=== PATIENT | female | born 1950 | race Caucasian/White ===

== ENCOUNTER → 2016-11-24 | Day surgery (SDC) | payer BC ==
[~2016-11-24] MED LIST: ALDACTONE25 MG PO; ALIGN4 MG PO; BRISDELLE7.5 MG PO; CARAFATE1 GM; CELEXA; CRESTOR PO; CRESTOR10 MG PO; ESTRADIOL PATCH TOP; ESTROGEL93 GM VG; GLUCOTROL XL PO; HUMALOG MI100 UNIT/5; LEXAPRO20 MG PO; LOSARTAN POTASS50 MG PO; METFORMIN PO; MULTI-VITAMIN1 TAB; NEXIUM 24HR20 MG PO; NEXIUM PO; NOVOLIN 70100 UNITS/; PAROXETINE HCL20 M1 PO; PHENERGAN PO; PRENATAL1 TA1; PROZAC PO; TROKENDI XR100 MG PO; TROKENDI XR50 MG PO; TYLOX 5/500 CAP1 CAP; VITAMIN; VITAMIN D PO; VITAMIN D2400 UNIT PO; VIVELLE.0375 MG/2 TOP; WAL-ZYR10 M1 PO; ZYRTEC PO; ZYRTEC10 M2 PO; [UNRECOGNIZED DRUG - OTHER]; [UNRECOGNIZED DRUG - OTHER] PO
--- NOTE | ~2016-11-24 | OR ---
Unit #: [id number] #: [id number] Patient: RAVINDER ROMAN [id number] [address] [place], [place] [address] [id number] MR#: [id number] NAME: RAVINDER ROMAN ROOM: Date of Procedure: 11/24/2016 Admission Date: 11/24/2016 Surgeon: Ovi Frias Jr., M.D. : 1950 Attending Physician: Ovi Frias Jr., M.D. Primary Care Physician: Felipa Benson M.D. OPERATIVE REPORT INDICATIONS FOR PROCEDURE The patient is a 66-year-old white female, recently presented to the office complaining of significant intermittent abdominal pain. Abdominal pain has been in left upper quadrant and left lower quadrant. Workup so far revealed no evidence of any abnormality. She has had a past history of having a lap band, which was helpful and losing weight, but was removed several years ago. She has also had a history of colon polyps. It was felt she could recurred with a polyps or possibly other pathology. She is brought to the endoscopy suite at this time for upper and lower endoscopy. She has had no recent scopes. She has had her prep at home. PREOPERATIVE DIAGNOSES Possible occult ulcer disease, possible colitis, possible diverticulitis. POSTOPERATIVE DIAGNOSES On upper endoscopy, the patient was noted to have 1 to 2+ ulcerative distal esophagitis and no other specific abnormalities except for a small hiatal hernia. 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 The largest was approximately 3 mm in diameter and in the sigmoid at 20 cm. ANESTHESIA MAC anesthesia. PROCEDURE PERFORMED Flexible fiberoptic esophagogastroduodenoscopy with flexible colonoscopy to the cecum and biopsies of several polyps with cold biopsy forceps and snare polypectomy of a polyp at 20 cm. DESCRIPTION OF PROCEDURE The patient was positioned in Silva position with left side down. After being given MAC anesthesia, the Olympus XQ scope was passed through the proximal esophagus. Entire esophagus was examined. Proximal two-thirds appeared normal in the area of the distal esophagus. There were some small ulcerations compatible with 1 to 2+ ulcerative distal esophagitis without evidence of any stenosis. The scope was advanced through the GE junction, there was a small hiatal hernia and down to the fundic and antral region of the stomach and retroflexed back up to the area of the cardia again noted was a small hiatal hernia. The stomach distended well without evidence of rigidity. No evidence of any gastric ulcer disease. The scope was then advanced down to the prepyloric region through the Unit #: [id number] #: [id number] Patient: RAVINDER ROMAN pylorus and the duodenal bulb and down to the second portion of the duodenum. The entire duodenal portion examination was within normal limits. The scope was slowly removed. The patient repositioned for colonoscopy. Digital rectal examination was performed, which revealed no palpable mass or tenderness. No blood or stool in the rectal ampulla. The Olympus colonoscope was advanced through the anal canal up the rectum and retroflexed down to the area of the anorectal region. There were no fissures. There were a few small internal hemorrhoids, not actively bleeding and felt to be of no major consequence. The scope was then straightened and advanced up in the rectosigmoid. In approximately 20 cm, there was a small 2 to 3 mm adenomatous polyp, which was snared at its base and suctioned up against the scope and suctioned through the suction port into the trap and sent to pathology. The base was well coagulated with no evidence of any bleeding or perforation or extensive soni. The scope was then advanced up to about 50 cm. There were multiple diverticula in the left colon without diverticulitis or colitis. At 50 cm, there were 2 small polyps, which were biopsied and at 80 cm, a small polyp which was biopsied with the cold biopsy forceps. The scope was then advanced around the splenic flexure and the transverse colon, around hepatic flexure and ascending colon, down in the area of the cecum. The light from the tip of the scope could be seen transilluminating through right lower quadrant abdominal wall area. Multiple attempts advancing the scope up the distal ileum were unsuccessful. The scope was slowly removed. There were no tumors except for the polyps described above. No other major polyps, no cancer, no AVMs, no evidence of any colitis or acute diverticulitis. The caliber of the colon appeared normal throughout. There was no evidence of any narrowing or obstruction. The scope was slowly removed. The patient tolerated the procedure well and discharged in satisfactory condition. Dictated by... Ovi Frias Jr., M.D. JMB/bettie TD: 11/24/2016 22:52 JOB #: [id number] OPERATIVE REPORT X Ovi Frias MD X PROCEDURE OPERATIVE NOTE
== END | disposition home or self-care (01) ==
LOC: COPS 09:14
DX: K22.10 Ulcer of esophagus without bleeding (principal); K44.9 Diaphragmatic hernia without obstruction or gangrene; K57.30 Diverticulosis of large intestine without perforation or abscess without bleeding; D12.4 Benign neoplasm of descending colon; D12.5 Benign neoplasm of sigmoid colon; Z86.010 Personal history of colon polyps; E11.9 Type 2 diabetes mellitus without complications; Z79.4 Long term (current) use of insulin; Z88.5 Allergy status to narcotic agent
CPT/HCPCS: 82947; 88305; J2250

== ENCOUNTER 2017-05-28 13:17 | Emergency (ER) | payer BC ==
[~2017-05-28] VITALS: Ht 170.2 cm; Wt 112.4 kg
--- NOTE | ~2017-05-28 | CT2 ---
[facility] A Service of [facility] [place] RADIOLOGY TEXT RESULTS PATIENT: RAVINDER ROMAN LOCATION: [facility] : 54 UNIT #: [id number] AGE: [address]: Curtis Saldana MD SEX: F ORDER DR: [id number] [facility]. [place], [place] [address] [id number] MR#: [id number] Acc #: [id number] NAME: RAVINDER ROMAN. : 1950 SEX: F STUDY DATE/TIME: 05/28/2017 16:37 UNIT: [facility] ROOM: STUDY DESCRIPTION: CT Abd and Pelv W Cont Attending Physician: Hugo Saldana M.D. Ordering Physician: Ed Doctor [id number] [facility] Primary Care Physician: Felipa Benson M.D. MEDICAL IMAGING REPORT This report is preliminary unless electronic signature is present EXAM CT abdomen and pelvis 05/28/2017 with oral and IV contrast PROCEDURE Axial CT abdomen and pelvis with oral and IV contrast with multiplanar reformats. TECHNIQUE This CT exam was performed with one or more of the following radiation dose reduction techniques: automatic exposure control, adjustment of mA and/or kV according to patient size, and iterative reconstruction. COMPARISON Prior study 11/28/2015 CLINICAL HISTORY Left upper quadrant abdominal pain and tenderness for 2 weeks. FINDINGS The lung bases are normal. Abdomen: There has been cholecystectomy. The liver is otherwise normal. The spleen and pancreas are normal. The kidneys and adrenal glands are normal and the aorta is normal in caliber. There is no bowel obstruction, intraabdominal mass or inflammatory change or abnormal fluid collection. Pelvis: The appendix is normal. There is no pelvic mass, hernia or bowel obstruction. There is mild spinal degenerative change but no acute bony abnormality. [facility] A Service of [facility] RADIOLOGY TEXT RESULTS PATIENT: RAVINDER ROMAN LOCATION: [facility] : 54 UNIT #: [id number] AGE: [address]: Curtis Saldana MD SEX: F ORDER DR: IMPRESSION Negative CT abdomen and pelvis. Status post cholecystectomy. Normal appendix, no renal or bowel or biliary obstruction or other acute abnormality. Dictated by... Blake Ronquillo M.D. THIS IS AN ELECTRONICALLY VERIFIED REPORT Blake Ronquillo M.D. at 06/10/2017 2:13 PM ALESSANDRA/theresa TD: 05/29/2017 08:17 JOB #: [id number] MEDICAL IMAGING REPORT Page 1 of 1 COPY
[2017-05-28 14:42] LABS: BASOPHIL% 0.5 % (0-2.5); DIFF IND NO; EOSINOPHIL# 0.2 X10e3 (0-0.7); EOSINOPHIL% 3.2 % (0.0-7.0); HEMATOCRIT 40.6 % (35.0-45.0); HEMOGLOBIN 13.6 gm/dL (12.0-16.0); LYMPHOCYTE# 1.8 X10e3 (1.0-3.5); LYMPHOCYTE% 28.7 % (17.0-45.0); MEAN CELL VOLUME 92.3 FL (83-96); MEAN CORPUSCULAR HEMOGLOBIN 30.9 PG (28-34); MEAN CORPUSCULAR HGB CONC 33.5 g/dL (30-36); MEAN PLATELET VOLUME 9.5 FL (6.5-11.5); MONOCYTE# 0.4 X10e3 (0-1.0); MONOCYTE% 6.8 % (3.0-12.0); NEUTROPHIL# 3.9 X10e3 (1.5-7.1); NEUTROPHIL% 60.8 % (40-75); PLATELET COUNT 203 X10e3 (140-420); RED CELL DISTRIBUTION WIDTH 14.2 % (11.0-15.5); WHITE BLOOD COUNT 6.4 X10e3 (4.0-10.5)
[2017-05-28 15:07] LABS: URINE SOURCE CLEAN CATCH
[2017-05-28 15:14] LABS: ALBUMIN SERUM 3.9 g/dL (3.5-5.0); BILIRUBIN, DIRECT 0.1 mg/dL (0.0-0.2); BILIRUBIN,INDIRECT 0.2 mg/dL (0.0-0.9); BILIRUBIN,TOTAL 0.3 mg/dL (0.2-2.0); CALCIUM SERUM 8.7 mg/dL (8.4-10.2); CREATININE SERUM 0.8 mg/dL (0.6-1.4); GLOM FILT RATE Estimated 77.4 mL/min (>60); PROTEIN TOTAL SERUM 7.4 g/dL (6.0-8.3)
[2017-05-28 15:15] LABS: URINE APPEARANCE CLEAR; URINE BILIRUBIN NEG (NEG); URINE BLOOD NEG (NEG); URINE COLOR YELLOW; URINE GLUCOSE NEG (NEG); URINE KETONE NEG (NEG); URINE LEUKOCYTE ESTERASE TRACE (NEG); URINE NITRATE NEG (NEG); URINE PROTEIN NEG (NEG); URINE SPECIFIC GRAVITY 1.009 (1.003-1.035); URINE UROBILINOGEN 0.2 MG/DL (NEG)
[2017-05-28 15:17] LABS: CULTURE INDICATED? YES; U HYALINE CASTS AUWI 0-2 /[LPF]; URBCS1 AUWI 0-2 /[HPF] (0-2); URINE BACTERIA AUWI 1+ (NEGATIVE); URINE SQUAMOUS EPITHELIAL CELL OCC /[HPF]
== END 2017-05-28 18:18 | disposition home or self-care (01) ==
LOC: CED 13:17
PROVIDERS: Emergency Medicine
DX: R10.13 Epigastric pain (principal); E11.9 Type 2 diabetes mellitus without complications; E78.5 Hyperlipidemia, unspecified; I10 Essential (primary) hypertension; Z90.49 Acquired absence of other specified parts of digestive tract; Z88.5 Allergy status to narcotic agent; Z79.4 Long term (current) use of insulin; Z79.899 Other long term (current) drug therapy
CPT/HCPCS: 36415; 74177; 80048; 80076; 81003; 82150; 83690; 85025; 87086; 96361; 96374; 96375; 99284; J1170; J2270; J2405; Q9967